=== PATIENT | male | born 1960 | race Caucasian/White ===

== ENCOUNTER 2021-07-01 07:09 | Outpatient (CLI) | payer OTHER, SELFPAY ==
--- NOTE | ~2021-07-01 | XR_ITS ---
XR_CERV2-3V_CR DATE: 07/01/2021 08:00 INDICATION: Neck pain TECHNIQUE: Standing AP, lateral, open-mouth views COMPARISON: None FINDINGS: C1 and C2 are normally aligned and the odontoid process is intact. There is minimal anterolisthesis at C3-4. There is moderately prominent degenerative disc disease and approximately 3 mm retrolisthesis at C5-6 . Uncovertebral joint spurring is noted on the right at C5-6 in particular. No fracture or dislocation or locked facet or prevertebral soft tissue swelling. IMPRESSION: Minimal anterolisthesis at C3-4 Moderately prominent degenerative disc disease and 3 mm retrolisthesis at C5-6 Reviewed, dictated and finalized at [facility]. Reviewed, dictated and finalized at location A.
== END 2021-07-01 07:10 ==
PROVIDERS: PCP Family Medicine; Visit Provider Family Medicine
DX: M50.322 Other cervical disc degeneration at C5-C6 level (principal)
CPT/HCPCS: 72040

== ENCOUNTER 2022-03-16 09:00 | Outpatient (NON) | payer OTHER, SELFPAY | END 2022-03-16 09:01 | disposition home or self-care (01) | LOC: ANHLAB 03-17 07:43 | PROVIDERS: PCP Family Medicine; Visit Provider Internal Medicine Gastroenterology | DX: Z12.11 Encounter for screening for malignant neoplasm of colon (principal); D12.5 Benign neoplasm of sigmoid colon | CPT/HCPCS: 88305 ==

== ENCOUNTER 2022-03-16 11:27 | Day surgery (SDC) | payer OTHER, SELFPAY ==
[2022-02-14 10:40] VITALS: BMI 27.1
[2022-03-03 13:10] VITALS: BMI 26.4
--- NOTE | 2022-03-15 09:46 | WPDANESEPPF ---
Anes - Initial Pre Proc Eval Procedure: Operation Date: 03/16/22 13:30 Proposed Procedures p Screening Colonoscopy - Kyle Hutchins MD Date/Time: 03/15/22 09:46 Surgeon: Kyle Hutchins MD Pre Op Diagnosis: Neoplasm Screening Patient Data Age: 62 Gender: M Height: 1.73 m Weight: 79 kg Allergies Allergy/AdvReac Type Severity Reaction Status Date / Time No Known Allergies Allergy Verified 03/03/22 13:09 Home Medications Medication Instructions Recorded Confirmed Type glucosam 750 mg-chondroi 100 1 tablet PO DAILY 12/08/20 03/03/22 History mg-hyalur 1.65 mg-CF borate 108 mg tablet ([employer]) imrcphre-altbafkh-cfrvl acid 400 1 tablet PO DAILY 12/08/20 03/03/22 History mcg-vit K 20 mcg-lycop 300 mcg tablet (Men's Multivitamin) meloxicam 15 mg tablet 15 mg PO DAILY #90 tabs 12/28/21 03/03/22 Rx pantoprazole 40 mg tablet,delayed 40 mg PO QAM #90 tabs 12/28/21 03/03/22 Rx release (Protonix) simvastatin 20 mg tablet 20 mg PO DAILY #90 tabs 12/28/21 03/03/22 Rx sodium,potassium,mag sulfates 17.5 See Rx Instructions PO .COMPLEX 02/14/22 Rx gram-3.13 gram-1.6 gram oral soln #354 mL (Suprep Bowel Prep Kit) loratadine 10 mg tablet 10 mg PO DAILY 03/03/22 03/03/22 History Patient hx anesthesia problems: none Family hx anesthesia problems: none Results Review: All pre-operative results and documents have been reviewed as part of the pre-operative evaluation. [facility] Past Medical History Medical History Erectile dysfunction Gastroesophageal reflux disease without esophagitis Mixed hyperlipidemia Prostate cancer Surgical History Surgical History (Updated 03/15/22 @ 09:46 by Jose Roberto Leija DO) History of prostatectomy Family History Family History Father Family history of chronic obstructive pulmonary disease Mother Acute myocardial infarction Sibling Acute myocardial infarction Other Family history of cardiovascular disease Social History Social History (Updated 12/28/21 @ 15:48 by Genoveva Duff [facility]) Smoking status: Never smoker Second hand tobacco smoke exposure: No Alcohol intake: current Drinks per week: 2 Substance use: never Substance use type: does not use Lack of Food: Never True Current Housing: I Have Housing Concerned About Future Housing: No Difficulty Paying Gas/Electric Bills: No Difficulty Paying for Meds: No Currently Unemployed: No Difficulty w/ Childcare or Family Care: No Living arrangements: with family Gender identity (if verbalized by the patient): Male Spiritual care concerns: No Agree to blood products: Yes Anes - Eval Final PreProcedure Day of Procedure 03/15/22 09:46 Patient weight: overweight Heart: regular rate and rhythm Lungs: clear to auscultation Airway: Mallampati scale class II Neurological: alert and oriented Last oral intake: >/= 8 hours ASA classification: II Emergent: no Anesthetic plan: proceed Anesthesia type and monitoring: general GIVS and standard monitoring Results Review: All pre-operative results and documents have been reviewed as part of the pre-operative evaluation. Informed Consent: The patient's anesthetic plan and its attendant risks and benefits were discussed with the patient/family/POA. Questions were solicited and answers provided to the satisfaction of the patient/family/POA.
[2022-03-16 12:15] VITALS: BP 135/80; PULSE 94; RESP 20; TEMP 36.7; O2SAT 96
[2022-03-16] MEDS: LACTATED RINGERS 1,000 ML 150 ML IV CONT (12:28)
--- NOTE | 2022-03-16 12:47 | PM.HPGS ---
History of Present Illness History of Present Illness Consent: Risks, benefits, and alternatives have been discussed and questions answered. Patient agrees to proceed with procedure. Chief complaint: Neoplasm Screening Narrative: Laci Palomares is a 62 year old male Presents for screening colonoscopy. Patient's current weight appetite bowel movements are normal. Patient denies abdominal pain. He has had no bleeding. Family history noncontributory. Previous colonoscopy 2011 was unremarkable. Review of Systems Review of Systems: Review of systems noncontributory. [facility] Past Medical History Medical History (Updated 03/16/22 @ 12:48 by Kyle Hutchins MD) Erectile dysfunction Gastroesophageal reflux disease without esophagitis Mixed hyperlipidemia Prostate cancer Surgical History Surgical History (Updated 03/15/22 @ 09:46 by Jose Roberto Leija DO) History of prostatectomy Family History Family History Father Family history of chronic obstructive pulmonary disease Mother Acute myocardial infarction Sibling Acute myocardial infarction Other Family history of cardiovascular disease Social History Social History (Updated 12/28/21 @ 15:48 by Genoveva Duff CMA) Smoking status: Never smoker Second hand tobacco smoke exposure: No Alcohol intake: current Drinks per week: 2 Substance use: never Substance use type: does not use Lack of Food: Never True Current Housing: I Have Housing Concerned About Future Housing: No Difficulty Paying Gas/Electric Bills: No Difficulty Paying for Meds: No Currently Unemployed: No Difficulty w/ Childcare or Family Care: No Living arrangements: with family Gender identity (if verbalized by the patient): Male Spiritual care concerns: No Agree to blood products: Yes Meds Home Medications and Allergies Home Medications Medication Instructions Recorded Confirmed Type glucosam 750 mg-chondroi 100 1 tablet PO DAILY 12/08/20 03/16/22 History mg-hyalur 1.65 mg-CF borate 108 mg tablet ([employer]) vmsnaukt-ihdfbwyq-xupvc acid 400 1 tablet PO DAILY 12/08/20 03/16/22 History mcg-vit K 20 mcg-lycop 300 mcg tablet (Men's Multivitamin) meloxicam 15 mg tablet 15 mg PO DAILY #90 tabs 12/28/21 03/16/22 Rx pantoprazole 40 mg tablet,delayed 40 mg PO QAM #90 tabs 12/28/21 03/16/22 Rx release (Protonix) simvastatin 20 mg tablet 20 mg PO DAILY #90 tabs 12/28/21 03/16/22 Rx sodium,potassium,mag sulfates 17.5 See Rx Instructions PO .COMPLEX 02/14/22 03/16/22 Rx gram-3.13 gram-1.6 gram oral soln #354 mL (Suprep Bowel Prep Kit) loratadine 10 mg tablet 10 mg PO DAILY 03/03/22 03/16/22 History Allergies Allergy/AdvReac Type Severity Reaction Status Date / Time No Known Allergies Allergy Verified 03/16/22 12:16 Vital Signs Vital Signs - 24 hr 03/16/22 12:15 Temperature 98.1 F Pulse Rate 94 Respiratory Rate 20 Blood Pressure 135/80 Pulse Oximetry 96 Oxygen Delivery Room Air Exam Narrative: Physical exam reveals patient to be alert. Vital signs stable. HEENT exam is unremarkable. Patient is anicteric. Lungs are clear to auscultation and percussion. Heart is without murmur or extra sounds. Abdomen bowel sounds present soft nontender with no hepatosplenomegaly. Digital external rectal exam is normal. Assessment and Plan Assessment and plan (1) Encounter for screening colonoscopy: Code(s): Z12.11 - Encounter for screening for malignant neoplasm of colon Status: Acute Assessment and Plan: Patient presents today for screening colonoscopy. He appears to be at average risk for colon polyps. Further recommendations may be given after endoscopy.
[2022-03-16 13:54] VITALS: BP 100/59; PULSE 82; RESP 20; O2SAT 94
[2022-03-16 14:04] VITALS: BP 104/69; PULSE 81; RESP 20; O2SAT 98
[2022-03-16 14:14] VITALS: BP 103/73; PULSE 80; RESP 20; O2SAT 97
--- NOTE | 2022-03-16 14:30 | WPDANESPN ---
Anes - Prog Note Post-Op Date/Time: 03/16/22 14:30 Cardiovascular status: normal Respiratory status: normal Airway patency: baseline Mental status: baseline Post-Op hydration status: normal Vital Signs: Last Vital Signs Temp 36.7 C 03/16/22 12:15 Pulse 80 03/16/22 14:14 Resp 20 03/16/22 14:14 BP 103/73 03/16/22 14:14 Pulse Ox 97 03/16/22 14:14 O2 Del Method Room Air 03/16/22 14:14 Pain Score (VAS): 0 I/O: Intake & Output 03/15/22 03/16/22 03/16/22 23:59 07:59 15:59 Intake Total 700 Balance 700 Post-procedural complaints: none Patient Feedback: Patient satisfied with anesthetic care. Other Findings: Patient vital signs back to baseline. Patient denies nausea and vomiting. Patient's pain under control. Patient OK for discharge.
== END 2022-03-16 14:25 | disposition home or self-care (01) ==
PROVIDERS: PCP Family Medicine; Visit Provider Internal Medicine Gastroenterology
PROC: 0DJD8ZZ Inspection of Lower Intestinal Tract, Via Natural or Artificial Opening Endoscopic (ICD-10-PCS; CPT 45378; principal; 2022-03-16 13:30)
DX: Z12.11 Encounter for screening for malignant neoplasm of colon (principal)
CPT/HCPCS: 45385; 45378

== ENCOUNTER 2024-02-15 08:43 | Outpatient (CLI) | payer BC, SELFPAY ==
--- NOTE | ~2024-02-15 | XR_ITS ---
EXAMINATION: XR TMJ BI DATE: 02/15/2024 09:01 INDICATION: Arthralgia of right temporomandibular joint. TECHNIQUE: Open and closed mouth views of the bilateral temporomandibular joints for a total of 4 vie ws were obtained. COMPARISON: None. FINDINGS: Alignment is normal. No fracture. The mandibular condyles are normal in morphology. There i s normal anterior translation of mandibular condyles in the open-mouth position. IMPRESSION: 1. Normal temporomandibular joints. Reviewed, dictated and finalized at location [facility]. SEALING MACHINE OPERATOR
== END 2024-02-15 08:44 | disposition home or self-care (01) ==
LOC: MICIMG 08:44
PROVIDERS: PCP Family Medicine; Visit Provider Family Medicine
DX: M26.621 Arthralgia of right temporomandibular joint (principal)
CPT/HCPCS: 70330

== ENCOUNTER 2024-06-14 18:01 | Emergency (ER) | payer BC, SELFPAY ==
--- NOTE | 2024-06-14 18:03 | ED_ITS ---
HPI - Abdominal Pain General Chief Complaint: Abdominal Pain Stated Complaint: Lower Left Abdomen Pain Time Seen by Provider: 06/14/24 18:02 Source: patient Mode of arrival: ambulatory Limitations: no limitations History of Present Illness HPI narrative: Nik is a 61-year-old male patient presenting to the clinic today with complaints of left lower abdominal pain x1 day. He reports pain is still in rates it a 7/1 0 in the left lower quadrant but at times it is sharp and stabbing and rates at a 10/10. States that yesterday after eating supper and has gradually gotten worse throughout the last 24 hours. Pain is worse with movement at times. He denies any fevers, chills, body aches, nausea, vomiting, or diarrhea. Last bowel movement was this morning and normal/soft for the patient. No blood in his stool. Denies any urinary symptoms. No history of kidney stones or diverticulitis. Last colonoscopy was 4 years ago and normal. Related Data Home Medications ?Medication ?Instructions ?Recorded ?Confirmed ?Last Taken ?Type glucosam 750 mg-chondroi 100 1 tablet PO DAILY 12/08/20 02/15/24 Unknown History mg-hyalur 1.65 mg-CF borate 108 mg tablet ([employer]) aeovewjv-sztteyqi-zrtpv acid 400 1 tablet PO DAILY 12/08/20 02/15/24 Unknown History mcg-vit K 20 mcg-lycop 300 mcg tablet (Men's Multivitamin) loratadine 10 mg tablet 10 mg PO DAILY 03/03/22 02/15/24 Unknown History Allergies Allergy/AdvReac Type Severity Reaction Status Date / Time No Known Allergies Allergy Verified 06/14/24 18:04 Review of Systems Review of Systems: Pertinent positives per HPI. Patient denies any fever, chills, rash, headache, visual changes, dizziness, cough, runny nose, sore throat, shortness of breath, chest pain, palpitations, nausea, vomiting, diarrhea, constipation, or any urinary issues. [facility] Past Medical History Medical History Erectile dysfunction Gastroesophageal reflux disease without esophagitis Mixed hyperlipidemia Prostate cancer Surgical History Surgical History History of prostatectomy Family History Family History Father Family history of chronic obstructive pulmonary disease Mother Acute myocardial infarction Sibling Acute myocardial infarction Other Family history of cardiovascular disease Social History Social History Smoking status: Never smoker Second hand tobacco smoke exposure: No Alcohol intake: current Drinks per week: 2 Substance use: never Substance use type: does not use Lack of Food: Never True Current Housing: I Have Housing Concerned About Future Housing: No Difficulty Paying Gas/Electric Bills: No Difficulty Paying for Meds: No Currently Unemployed: No Difficulty w/ Childcare or Family Care: No Living arrangements: with family Gender identity (if verbalized by the patient): Male Spiritual care concerns: No Agree to blood products: Yes Comments At the time of my signature, I reviewed and agree with the nursing past medical, surgical, social, and family history. There is no relevant family history pertinent to the patient complaint. Exam Narrative: General: Well-developed, well nourished, in no apparent distress. Head: Normocephalic, atraumatic. Cardio: Regular rate and rhythm, s1 and s2 normal, no murmur appreciated. Resp: Clear to auscultation bilaterally, no rhonchi, rales, wheezing or rubs. Abdomen: Soft, pliable, bowel sounds present in all quadrants, left lower quadrant tender to palpation, no organomegly, no CVAT tenderness. Course Course Emergency Course: Portions of this record may have been created with voice recognition software. Level of Care: Express Care Visit Vital Signs Vital signs: Vital Signs Temperature 37.1 C 06/14/24 18:07 Pulse Rate 92 06/14/24 18:07 Respiratory Rate 20 06/14/24 18:07 Blood Pressure 144/73 H 06/14/24 18:07 Pulse Oximetry 99 06/14/24 18:07 Oxygen Delivery Room Air 06/14/24 18:07 Temperature 37.1 C 06/14/24 18:07 Pulse Rate 92 06/14/24 18:07 Respiratory Rate 20 06/14/24 18:07 Blood Pressure 144/73 H 06/14/24 18:07 Pulse Oximetry 99 06/14/24 18:07 Oxygen Delivery Room Air 06/14/24 18:07 Vital signs reviewed MDM - Abdominal Pain MDM Narrative Medical decision making narrative: At the time of visit patient is resting comfortably on the exam table. Patient appears to be nontoxic. Plan: Patient has left lower quadrant tenderness. Recommend transfer to the ER for further evaluation for labs and possibly CT scan to determine etiology. Patient was told to be NPO. Contacted Jessie-physician's ortho assistant at [facility] and she accepts patient for transfer. Patient to be transferred via private car. Differential Diagnosis Differential diagnosis: Likely abdominal pain, acute appendicitis, calculus of kidney, constipation, diverticulitis, gastroenteritis, pancreatitis, small bowel obstruction and other (Diverticulosis, colitis, ureterolithiasis, abdominal muscle wall strain) Discharge Plan Discharge Clinical Impression: Abdominal pain, acute, left lower quadrant Patient Disposition: Acute Care Hospital Condition: Stable Patient Language: Divehi Prescriptions: No Action Men's Multivitamin 400-20-300 mcg tablet 1 tablet PO DAILY [employer] 750 mg-100 mg- 1.65 mg-108 mg tablet 1 tablet PO DAILY cyclobenzaprine 10 mg tablet 10 mg PO QHS PRN (Reason: jaw pain) Qty: 15 0RF meloxicam 15 mg tablet 15 mg PO DAILY Qty: 90 3RF pantoprazole [Protonix] 40 mg tablet,delayed release (DR/EC) 40 mg PO QAM Qty: 90 3RF simvastatin 40 mg tablet 40 mg PO DAILY Qty: 90 1RF loratadine 10 mg Tablet 10 mg PO DAILY Follow-up/Referrals: Tia Hull MD [Primary Care Provider] - Time of Disposition: 18:16 Quality NIHSS Nursing Documentation ED NIHSS nursing documentation: reviewed/agree
[2024-06-14 18:07] VITALS: BP 144/73; PULSE 92; RESP 20; TEMP 37.1; O2SAT 99
== END 2024-06-14 18:15 | disposition short-term general hospital (02) ==
PROVIDERS: Emergency Provider Nurse Practitioner Family; PCP Family Medicine
DX: R10.32 Left lower quadrant pain (principal); E78.2 Mixed hyperlipidemia; Z85.46 Personal history of malignant neoplasm of prostate
CPT/HCPCS: 99202; G0463

== ENCOUNTER 2024-06-14 18:30 | Emergency (ER) | payer BC, SELFPAY ==
--- NOTE | ~2024-06-14 | CT_ITS ---
CT abdomen pelvis w con Ordering provider: Norberto Abernathy MD History: 64 years Male with . LLQ pain . Comparison: None. Technique: CT abdomen and pelvis with IV and without oral contrast. Automated exposure control and it erative reconstruction technique were employed. The dose-length product was 701.65 mGy-cm. 100 mL Omn ipaque 350 was given IV. Findings: VISUALIZED LOWER CHEST: Dependent atelectatic changes. UPPER ABDOMINAL ORGANS: Liver: Mild fat infiltration. Tiny cyst seen in the left lobe. Gallbladder: Contracted. Spleen: Normal. Stomach/duodenum: Normal. Pancreas: Normal. Adrenals: Normal. Kidneys: Normal. PELVIC ORGANS: The bladder is normal. BOWEL AND MESENTERY: Colon: Diverticulitis is seen in the sigmoid colon with surrounding fat stranding and slight thickeni ng of the wall. No evidence of abscess or free air is seen. Appendix is not demonstrated. Small Bowel: Normal. No obstruction. Peritoneum/mesentery: No free air or free fluid. No mesenteric lymphadenopathy. RETROPERITONEUM: Normal aorta. No retroperitoneal lymphadenopathy. MUSCULOSKELETAL: Superficial soft tissues: The superficial soft tissues are normal. Bones: Age appropriate degenerative changes of the spine. IMPRESSION: 1. Diverticulitis of the sigmoid colon at [place] with the Descending Colon. 2. No evidence of appendicitis or intestinal obstruction. Reviewed, dictated and finalized at location A. IMPRESSION: 1. Diverticulitis of the sigmoid colon at [place] with the Descending Col on. 2. No evidence of appendicitis or intestinal obstruction.
--- OUTSIDE RECORDS SUMMARY | 2024-06-14 18:55 | XMS_ITS | Clinical Summary ---
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 Role Phone Unavailable Primary Care Provider Unavailabl e Social History Tobacco Use Types Packs/Day Years Used Date Smoking Tobacco: Never Assessed Sex and Gender Information Value Date Recorded Sex Assigned at Not on file Legal Sex Male 7:35 PM CDT Gender Identity Not on file Sexual Orientation Not on file Plan of Treatment Health Maintenance Due Date Last Done Comments Colorectal Cancer Screening Colonoscopy (10 Years) 1960 Annual Physical 01/11/1963 Hepatitis C 01/11/1978 DTaP, Tdap and Td Vaccines ( 1 - Tdap) 01/11/1979 Zoster Vaccines (1 of 2) 01/11/2010 COVID-19 Vaccine ( - 2023-2 5 season) 2023 RSV Immunization or 60+ Years (1 - 1-dose 75+ series) 01/11/2035 Meningococcal B Vaccine Aged Out No l onger eligible based on patient's age to complete this topic Meningococcal Vaccine Aged Out No cristóbal almaz eligible based on patient's age to complete this topic Pneumococcal Vaccine: Pediat rics (0 to 5 Years) and At-Risk Patients (6 to 64 Years) Aged Out No longer eligible b ased on patient's age to complete this topic RSV Immunizations Under 20 Months Aged Out No longer eligible based on patient's age to complete this topic
[2024-06-14 18:56] VITALS: BP 128/94; PULSE 86; RESP 18; TEMP 36.6; O2SAT 98
[2024-06-14 19:00] VITALS: O2SAT 98
[2024-06-14 19:01] VITALS: BP 128/94; O2SAT 98
[2024-06-14 19:18] LABS: Basophils Percent Auto 0.2 % (0.2-1.2); Eosinophils Absolute Auto 0.2 K/mm3 (0-0.3); Hematocrit 38.2 % (42.0-52.0); Immature Granulocyte Absolute 0.02 K/mm3 (0.00-0.031); Immature Granulocyte Percent A 0.2 % (0-0.5); Lymphocytes Percent Auto 13.2 % (18.3-44.2); Mean Corpuscular Volume 91.2 fl (80-100); Mean Platelet Volume 10.4 fl (7.4-10.4); Monocytes Absolute Auto 0.9 K/mm3 (0.1-0.6); Monocytes Percent Auto 8.7 % (2.6-8.5); Neutrophils Absolute Auto 7.5 K/mm3 (1.3-6.7); Neutrophils Percent Auto 75.7 % (45.5-73.1); Platelet Count Result 199 k/mm3 (150-375); Red Blood Count 4.19 M/mm3 (4.6-6.20); Red Cell Distribution Width 12.8 % (11.5-14.5); White Blood Count 9.9 K/mm3 (4.5-10.0)
--- NOTE | 2024-06-14 19:18 | PC.NURSE ---
patients last oral intake was 1700 today
[2024-06-14 19:29] LABS: Alanine Aminotransferase 51 U/L (6-50); Albumin Level 4.3 g/dL (3.5-5.1); Alkaline Phosphatase 94 U/L (38-126); Anion Gap 10 mmol/L (4-12); Aspartate Amino Transferase 57 U/L (17-59); Bilirubin,Total 0.7 mg/dL (0.2-1.3); Blood Urea Nitrogen 13 mg/dL (9-20); Calcium 8.4 mg/dL (8.4-10.2); Carbon Dioxide 24 mmol/L (22-30); Chloride 106 mmol/L (98-107); Estimated Glomerular Filt Rate > 60; Glucose 115 mg/dL (65-110); Lipase 83 U/L (23-300); Potassium 3.5 mmol/L (3.4-5.0); Sodium 140 mmol/L (137-145)
[2024-06-14 19:30] LABS: Lactic Acid Reflex 1.4 mmol/L (0.7-2.0)
--- NOTE | 2024-06-14 19:57 | ED.GENADULT ---
HPI - General Adult General Chief complaint: Abdominal Pain Stated complaint: LUQ ABD pain Time Seen by Provider: 06/14/24 19:08 History of Present Illness HPI narrative: Patient is a 64-year-old gentleman presents emergency department with chief complaint of left lower quadrant pain. Patient reports pain started about 24 hours ago reports the pain is worse with palpation but does report pain radiates to his left inguinal area the patient states that he has had no nausea no vomiting reports that right now the pain is tolerable denies constipation reports he has had no difficulty starting with urination denies vomiting Related Data Home Medications ?Medication ?Instructions ?Recorded ?Confirmed ?Last Taken ?Type glucosam 750 mg-chondroi 100 1 tablet PO DAILY 12/08/20 02/15/24 Unknown History mg-hyalur 1.65 mg-CF borate 108 mg tablet ([employer]) xudarnow-wmgglcin-flyyv acid 400 1 tablet PO DAILY 12/08/20 02/15/24 Unknown History mcg-vit K 20 mcg-lycop 300 mcg tablet (Men's Multivitamin) loratadine 10 mg tablet 10 mg PO DAILY 03/03/22 02/15/24 Unknown History Allergies Allergy/AdvReac Type Severity Reaction Status Date / Time No Known Allergies Allergy Verified 06/14/24 18:04 Review of Systems Review of Systems: A 10 system review of systems was completed on the patient and is negative except for what is stated in the HPI. Nursing and ancillary documentation was reviewed. [facility]MERLY [facility] Past Medical History Medical History Erectile dysfunction Gastroesophageal reflux disease without esophagitis Mixed hyperlipidemia Prostate cancer Surgical History Surgical History History of prostatectomy Family History Family History Father Family history of chronic obstructive pulmonary disease Mother Acute myocardial infarction Sibling Acute myocardial infarction Other Family history of cardiovascular disease Social History Social History Smoking status: Never smoker Second hand tobacco smoke exposure: No Alcohol intake: current Drinks per week: 2 Substance use: never Substance use type: does not use Lack of Food: Never True Current Housing: I Have Housing Concerned About Future Housing: No Difficulty Paying Gas/Electric Bills: No Difficulty Paying for Meds: No Currently Unemployed: No Difficulty w/ Childcare or Family Care: No Living arrangements: with family Gender identity (if verbalized by the patient): Male Spiritual care concerns: No Agree to blood products: Yes Exam Narrative: GENERAL: Well-appearing, well-nourished, and in no acute distress. HEAD: Normocephalic, atraumatic. EYES: PERRLA and EOMI. ENT: Nares clear, no rhinorrhea or epistaxis. Mucous membranes moist. NECK: Supple. CHEST: Clear to auscultation. No respiratory distress. HEART: Regular rate and rhythm. No murmur heard. Normal peripheral pulses. ABDOMEN: Soft, tenderness to palpation left lower quadrant, nondistended, normal active bowel sounds. EXTREMITIES: Normal range of motion. No edema. SKIN: Warm, dry, no rash. NEURO: No focal deficits. Alert and oriented x3. PSYCH: Normal mood and affect. Course Vital Signs Vital signs: Vital Signs Temperature 36.6 C 06/14/24 18:56 Pulse Rate 86 06/14/24 18:56 Respiratory Rate 18 06/14/24 18:56 Blood Pressure 128/94 H 06/14/24 18:56 Pulse Oximetry 98 06/14/24 18:56 Temperature 36.6 C 06/14/24 18:56 Pulse Rate 89 06/14/24 21:46 Respiratory Rate 18 06/14/24 21:46 Blood Pressure 145/123 H 06/14/24 21:46 Pulse Oximetry 98 06/14/24 21:46 Medical Decision Making [facility] Narrative Medical decision making narrative: Differential diagnosis includes ureterolithiasis, diverticulitis, intra-abdominal infection, intra-abdominal abscess, bowel obstruction Laboratory studies were obtained on the patient showed a white count of 9.9 electrolytes are within normal limits urinalysis showed no evidence UTI CT scan showed evidence of acute diverticulitis Patient is currently nontoxic patient was instructed to return precautions the patient was started on Cipro and Flagyl Vital Signs Vital Signs: Vital Signs Temperature 36.6 C 06/14/24 18:56 Pulse Rate 86 06/14/24 18:56 Respiratory Rate 18 06/14/24 18:56 Blood Pressure 128/94 H 06/14/24 18:56 Pulse Oximetry 98 06/14/24 18:56 Temperature 36.6 C 06/14/24 18:56 Pulse Rate 89 06/14/24 21:46 Respiratory Rate 18 06/14/24 21:46 Blood Pressure 145/123 H 06/14/24 21:46 Pulse Oximetry 98 06/14/24 21:46 Lab Data 06/14/24 19:09 06/14/24 19:09 Labs: Lab Results 06/14/24 06/14/24 Range/Units 19:09 19:20 WBC 9.9 (4.5-10.0) K/mm3 RBC 4.19 L (4.6-6.20) M/mm3 Hgb 13.0 L (14.0-18.0) g/dL Hct 38.2 L (42.0-52.0) % MCV 91.2 (80-100) fl MCH 31.0 (26-34) pg MCHC 34.0 (32-36) g/dl RDW 12.8 (11.5-14.5) % Plt Count 199 (150-375) k/mm3 MPV 10.4 (7.4-10.4) fl Immature Gran % (Auto) 0.2 (0-0.5) % Neut % (Auto) 75.7 H (45.5-73.1) % Lymph % (Auto) 13.2 L (18.3-44.2) % [place] % (Auto) 8.7 H (2.6-8.5) % Eos % (Auto) 2.0 (0-4.4) % Baso % (Auto) 0.2 (0.2-1.2) % Lymph # (Auto) 1.30 (0.9-3.2) K/mm3 [place] # (Auto) 0.9 H (0.1-0.6) K/mm3 Eos # (Auto) 0.2 (0-0.3) K/mm3 Baso # (Auto) 0.0 (0.0-0.1) K/mm3 Abs Immat Gran (auto) 0.02 (0.00-0.031) K/mm3 Absolute Neuts (auto) 7.5 H (1.3-6.7) K/mm3 Absolute Nucleated RBC 0.000 (0.0-0.012) K/mm3 Nucleated RBC % 0.0 (0.0-0.2) % Sodium 140 (137-145) mmol/L Potassium 3.5 (3.4-5.0) mmol/L Chloride 106 (98-107) mmol/L Carbon Dioxide 24 (22-30) mmol/L Anion Gap 10 (4-12) mmol/L BUN 13 (9-20) mg/dL Creatinine 0.79 (0.7-1.3) mg/dL Estim Creat Clear Calc Not Reportable Estimated GFR > 60 (59 - ) Glucose 115 H (65-110) mg/dL Lactic Acid 1.4 (0.7-2.0) mmol/L Calcium 8.4 (8.4-10.2) mg/dL Total Bilirubin 0.7 (0.2-1.3) mg/dL AST 57 (17-59) U/L ALT 51 H (6-50) U/L Alkaline Phosphatase 94 (38-126) U/L Total Protein 7.0 (6.3-8.2) g/dL Albumin 4.3 (3.5-5.1) g/dL Lipase 83 (23-300) U/L Urine Color Yellow (Yellow) Urine Appearance Clear (Clear) Urine pH 6.5 (5.0-9.0) Ur Specific [place] 1.010 (1.001-1.035) Urine Protein Negative (Negative) mg/dL Urine Glucose (UA) Negative (Negative) mg/dL Urine Ketones Negative (Negative) mg/dL Ur Blood (Man) Negative (Negative) Urine Nitrate Negative (Negative) Urine Bilirubin Negative (Negative) Urine Urobilinogen 1.0 (<2.0) mg/dL Leukocyte Esterase Rfl Negative (Negative) LEENA/UL Discharge Plan Discharge Clinical Impression: Acute diverticulitis Patient Disposition: Home Condition: Stable Instructions: Antibiotic Form, Diverticulitis (ED), Diverticulitis Diet (ED), Abdominal Pain (ED) Patient Language: Congolese Prescriptions: New ciprofloxacin HCl 500 mg tablet 500 mg PO Q12H 10 Days Qty: 20 0RF metronidazole 500 mg tablet 500 mg PO Q8H 10 Days Qty: 30 0RF No Action Men's Multivitamin 400-20-300 mcg tablet 1 tablet PO DAILY [employer] 750 mg-100 mg- 1.65 mg-108 mg tablet 1 tablet PO DAILY cyclobenzaprine 10 mg tablet 10 mg PO QHS PRN (Reason: jaw pain) Qty: 15 0RF meloxicam 15 mg tablet 15 mg PO DAILY Qty: 90 3RF pantoprazole [Protonix] 40 mg tablet,delayed release (DR/EC) 40 mg PO QAM Qty: 90 3RF simvastatin 40 mg tablet 40 mg PO DAILY Qty: 90 1RF loratadine 10 mg Tablet 10 mg PO DAILY Follow-up/Referrals: Tia Hull MD [Primary Care Provider] - Time of Disposition: 21:51
[2024-06-14 20:01] LABS: Add Urine Microscopic? NO; Appearance Urine Clear (Clear); Bilirubin Urine Negative (Negative); Blood Urine Negative (Negative); Color Urine Yellow (Yellow); Glucose Urine UA Negative (Negative); Ketones Urine Negative (Negative); Leukocyte Esterase Ur Negative LEU/UL (Negative); Nitrate Urine Negative (Negative); Protein Urine Negative (Negative); pH Urine 6.5 (5.0-9.0)
[2024-06-14] MEDS: CIPROFLOXACIN 500 MG TAB PO (21:45)
[2024-06-14] MEDS: metroNIDAZOLE 500 MG TABLET PO (21:45)
[2024-06-14 21:46] VITALS: BP 145/123; PULSE 89; RESP 18; O2SAT 98
== END 2024-06-14 21:59 | disposition home or self-care (01) ==
PROVIDERS: Student in an Organized Health Care Education/Training Program; Emergency Provider Emergency Medicine; PCP Family Medicine
DX: K57.32 Diverticulitis of large intestine without perforation or abscess without bleeding (principal); E78.2 Mixed hyperlipidemia; K21.9 Gastro-esophageal reflux disease without esophagitis; Z85.46 Personal history of malignant neoplasm of prostate; Z90.79 Acquired absence of other genital organ(s)
CPT/HCPCS: 36415; 74177; 80053; 81003; 83605; 83690; 85025; 99284; A9270; Q9967